=== PATIENT | male | born 1985 | race Caucasian/White ===

== ENCOUNTER 2019-12-15 16:42 | Emergency (ER) | END 2019-12-15 19:30 | disposition left against medical advice (07) | LOC: ER 16:42 | DX: Z53.21 Procedure and treatment not carried out due to patient leaving prior to being seen by health care provider (principal) ==

== ENCOUNTER 2020-04-02 16:39 | Emergency (ER) | payer OTHER ==
--- NOTE | 2020-04-02 17:01 | ER Document Report ---
ED Medical Screen (RME) - General Chief Complaint: Inhalation Injury Stated Complaint: ACCIDENT Time Seen by Provider: 04/02/20 16:45 Notes: Patient is a 34-year-old male who presents to the emergency department with the chief complaint of chest pains that started about a week ago. 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 Patient states that he also has slight abdominal pain. States it started when he started working about a week ago. Denies any fever, body aches, or chills. Patient is an everyday smoker. Patient denies any exhaust exposure. Exam: Clear lung sounds throughout all lung preciado. I have greeted and performed a rapid initial assessment of this patient. A comprehensive ED assessment and evaluation of the patient, analysis of test results and completion of medical decision making process will be conducted by an additional ED providers. Physical Exam - Vital signs Vitals: Temp Pulse Resp BP Pulse Ox 97.9 F 99 16 146/98 H 97 04/02/20 16:44 04/02/20 16:44 04/02/20 16:44 04/02/20 16:44 04/02/20 16:44 Course - Vital Signs Vital signs: Temp Pulse Resp BP Pulse Ox 97.9 F 99 16 146/98 H 97 04/02/20 16:44 04/02/20 16:44 04/02/20 16:44 04/02/20 16:44 04/02/20 16:44
[2020-04-02 17:33] LABS: ABSOLUTE BASOPHILS # (AUTO) 0.1 10^3/uL (0.0-0.2); ABSOLUTE EOSINOPHILS # (AUTO) 0.2 10^3/uL (0.0-0.6); ABSOLUTE LYMPHOCYTES (AUTO) 2.6 10^3/uL (0.5-4.7); ABSOLUTE MONOCYTES (AUTO) 0.5 10^3/uL (0.1-1.4); ABSOLUTE NEUT (AUTO) 3.7 10^3/uL (1.7-8.2); BASOPHILS % (AUTO) 0.8 % (0-2); EOSINOPHILS % (AUTO) 2.5 % (0-6); HEMATOCRIT 46.5 % (37.9-51.0); HEMOGLOBIN 16.7 g/dL (13.5-17.0); LYMPHOCYTES % (AUTO) 36.8 % (13-45); MEAN CORPUSCULAR HEMOGLOBIN 31.7 pg (27.0-33.4); MEAN CORPUSCULAR HGB CONC 35.8 g/dL (32.0-36.0); MEAN CORPUSCULAR VOLUME 88 fl (80-97); MONOCYTES % (AUTO) 7.1 % (3-13); PLATELET COUNT 265 10^3/uL (150-450); RED BLOOD COUNT 5.26 10^6/uL (4.35-5.55); RED CELL DISTRIBUTION WIDTH 13.1 % (11.5-14.0); SEGMENTED NEUTROPHILS % (AUTO) 52.8 % (42-78); TOTAL CELLS COUNTED % (AUTO) 100 %
[2020-04-02 17:55] LABS: ALBUMIN 4.4 g/dL (3.5-5.0); ALKALINE PHOSPHATASE 79 U/L (38-126); ANION GAP 9 (5-19); ASPARTATE AMINO TRANSFERASE 28 U/L (17-59); BILIRUBIN,DIRECT 0.3 mg/dL (0.0-0.4); BILIRUBIN,TOTAL 0.9 mg/dL (0.2-1.3); BLOOD UREA NITROGEN 9 mg/dL (7-20); CALCIUM 9.5 mg/dL (8.4-10.2); CARBON DIOXIDE 25 mmol/L (22-30); CHLORIDE 104 mmol/L (98-107); CREATINE KINASE 72 U/L (55-170); GLUCOSE 116 mg/dL (75-110); POTASSIUM 3.9 mmol/L (3.6-5.0); TOTAL PROTEIN 7.3 g/dL (6.3-8.2)
--- NOTE | 2020-04-02 17:56 | RADIOLOGY REPORT (SQ) ---
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 COMPARISON: None. EXAM PARAMETERS: NUMBER OF VIEWS: two views TECHNIQUE: Digital Frontal and Lateral radiographic views of the chest acquired. RADIATION DOSE: NA LIMITATIONS: none FINDINGS: LUNGS AND PLEURA: No opacities, masses or pneumothorax. No pleural effusion. MEDIASTINUM AND HILAR STRUCTURES: No masses or contour abnormalities. HEART AND VASCULAR STRUCTURES: Heart normal size. No evidence for failure. BONES: No acute findings. HARDWARE: None in the chest. OTHER: No other significant finding. IMPRESSION: NO ACUTE RADIOGRAPHIC FINDING IN THE CHEST. TECHNICAL DOCUMENTATION: JOB ID: [id number] [employer]- All Rights Reserved Reading location - IP/workstation name: [email or web address]
--- NOTE | 2020-04-02 18:05 | EKG REPORT ---
SEVERITY:- BORDERLINE ECG - SINUS RHYTHM BORDERLINE T ABNORMALITIES, INFERIOR LEADS : Confirmed by: Mayco Hdz 02-Apr-2020 18:05:21
--- NOTE | 2020-04-02 21:13 | ER Document Report ---
ED General - General Chief Complaint: Inhalation Injury Stated Complaint: ACCIDENT Time Seen by Provider: 04/02/20 16:45 Notes: Patient is a 34-year-old male comes emergency department for chief complaint of symptoms that started 1 week ago including congestion, sore throat, cough, wheezing. He denies specific chest pain, he states he feels like it is "burning in my chest after coughing spell". Patient also states that he has had abdominal pain for months, he states that every time he lies down he will predictably started having abdominal pain after while and then he feels bad in the morning with reduced appetite. He denies vomiting, current abdominal pain, flank pain. He denies any obvious COVID-19 exposures. 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 He smokes, denies asthma, denies any diagnosed medical history, denies recreational drugs, he states he used to drink a lot of alcohol but has stopped for over a year. - Related Data Allergies/Adverse Reactions: No Known Allergies Allergy (Unverified 04/02/20 22:26) Past Medical History - General Information source: Patient - Social History Smoking Status: Current Every Day Smoker Smoking Education Provided: Yes - <3 min Frequency of alcohol use: None Drug Abuse: None Lives with: Family Family History: Reviewed & Not Pertinent - Medical History Medical History: Negative Surgical Hx: Negative - Immunizations Immunizations up to date: Yes Hx Diphtheria, Pertussis, Tetanus Vaccination: Yes Review of Systems - Review of Systems Constitutional: See HPI EENT: See HPI Cardiovascular: No symptoms reported Respiratory: See HPI Gastrointestinal: See HPI Genitourinary: No symptoms reported Male Genitourinary: No symptoms reported Musculoskeletal: No symptoms reported Skin: No symptoms reported Hematologic/Lymphatic: No symptoms reported Neurological/Psychological: No symptoms reported Physical Exam - Vital signs Vitals: Temp Pulse Resp BP Pulse Ox 97.9 F 99 16 146/98 H 97 04/02/20 16:44 04/02/20 16:44 04/02/20 16:44 04/02/20 16:44 04/02/20 16:44 - Notes Notes: GENERAL: Alert, interacts well. No acute distress. HEAD: Normocephalic, atraumatic. EYES: Pupils equal, round, and reactive to light. Extraocular movements intact. ENT: Oral mucosa moist, tongue midline. Oropharynx unremarkable. Airway patent. Mild sinus congestion, sinuses non-tender, ear canals unremarkable, TM's intact. NECK: Full range of motion. Supple. Trachea midline. No lymphadenopathy. LUNGS: Clear to auscultation bilaterally, no wheezes, rales, or rhonchi. No respiratory distress. Non-tender chest wall. HEART: Regular rate and rhythm. No murmur ABDOMEN: Soft, non-tender. Non-distended. EXTREMITIES: Moves all 4 extremities spontaneously. No edema, normal radial and dorsalis pedis pulses bilaterally. No cyanosis. BACK: no cervical, thoracic, lumbar midline tenderness. No saddle anesthesia, normal distal neurovascular exam. Moves all extremities in full range of motion. NEUROLOGICAL: Alert and oriented x3. Normal speech. Cranial nerves II through XII grossly intact. Strength 5/5 in all extremities. PSYCH: Normal affect, normal mood. SKIN: Warm, dry, normal turgor. No rashes or lesions noted. Course - Re-evaluation Re-evalutation: Patient with 2 separate complaints, first complaint is sore throat that resolved, congestion, cough, he states he felt he was wheezing earlier but his lungs are clear on auscultation. He denies fever. Chest x-ray unremarkable. E KG shows inverted T wave in lead III, troponin negative, symptoms been present for multiple days. Patient has not actually had any chest pain. Vital signs unremarkable. Patient is also complaining of abdominal symptoms especially after lying down in first thing in the morning which are very suggestive of gastritis/GERD, he has no current abdominal complaints. Labs reviewed and unremarkable. I discussed findings with patient. Patient is requesting we have tested for COVID-19 and this was performed. Discussed details of this as well. Discussed treatment options, given Decadron for bronchitis/potential COVID-19, discussed remaining medications include treatment for gastritis, discussed follow-up and return precautions. Patient states appreciation and agreement. Stable and well-appearing at time of discharge. - Vital Signs Vital signs: Temp Pulse Resp BP Pulse Ox 97.8 F 80 14 140/80 H 98 04/02/20 22:35 04/02/20 22:35 04/02/20 22:35 04/02/20 22:35 04/02/20 22:35 - Laboratory Result Diagrams: 04/02/20 17:20 04/02/20 17:20 Laboratory results interpreted by me: 04/02/20 17:20 Glucose 116 H - EKG Interpretation by Me Additional EKG results interpreted by me: EKG shows sinus rhythm at a rate of 84, QTc 440, normal axis, inverted T waves in lead III but no T wave inversions or ST segment changes in consecutive leads. Discharge - Discharge Clinical Impression: Sinus congestion, Shortness of breath, Cough, Person under investigation for COVID-19 Condition: Stable Disposition: HOME, SELF-CARE Additional Instructions: Your chest x-ray and work-up today did not show any concerning findings. Your symptoms and examination are most consistent with upper respiratory inflammation and bronchitis. You have been treated with Decadron, use the albuterol inhaler and spacer, use the nasal spray. In regards to your gastrointestinal symptoms based on your evaluation and symptoms I suspect that you have gastritis. Take Carafate and Pepcid as pre scribed to help treat this, you can take additional Rolaids, Tums, Maalox, etc. if needed. You can take Tylenol for pain. Avoid NSAIDs, alcohol, smoking, caffeine, spicy food. Start with a bland diet. You have been tested for COVID-19, you will be contacted with results, please quarantine while you are waiting for this, see additional instructions below. Follow-up with primary care for additional evaluation and treatment. Return if you worsen including difficulty breathing, fever, severe chest pain, uncontrolled vomiting, vomiting blood, black stools, or any other concerning or worsening symptoms. As a person under investigation for COVID-19, the [place] Department of Health and Human Services (division on public health) advises you to adhere to the following guidance until your test results are reported to you. If your test result is positive, you will receive additional information from your provider and your local health department at that time. Remain at home until you are cleared by the health provider or public health authorities. Keep a log of visitors to your home, notify any visitors to your home of your isolation status. If you plan to move to a new address or leave the [facility], notify the local health department in your County. Call your Doctor or seek care if you have an urgent medical need. Before seeking medical care, call him to get instructions from the provider before arriving at the medical office, clinic, or hospital. Notify them that you are being tested for the virus (COVID-19) so that arrangements can be made, as necessary, to prevent transmission to others in the healthcare setting. Next, notify the local health department in your county. If a medical emergency arises and you need to call 911, inform the first responders that you are being tested for the virus that causes COVID-19. Next, notify the local health department in your county. Prescriptions: Sucralfate [Carafate 1 gm Tablet] 1 gm PO QID #20 tablet Fluticasone Propionate [Flonase Nasal [place] 50 Mcg/[place] 16 gm] 2 sprays NASL Q12 #1 inhaler Famotidine [Pepcid 20 mg Tablet] 20 mg PO BID #20 tablet Forms: Return to Work
[2020-04-02] MEDS ORDERED: DEXAMETHASONE SOD PHOS INJ 10 MG/1 ML VIAL IM ONE (22:18)
[2020-04-02 22:37] VITALS: BP 140/80
== END 2020-04-02 22:37 | disposition home or self-care (01) ==
LOC: ER 16:39
DX: R09.81 Nasal congestion (principal); R06.02 Shortness of breath; R05 Cough; J02.9 Acute pharyngitis, unspecified; R10.9 Unspecified abdominal pain; R63.0 Anorexia; F17.200 Nicotine dependence, unspecified, uncomplicated; Z20.828 Contact with and (suspected) exposure to other viral communicable diseases
CPT/HCPCS: 93005; 99285; 96372; 36415; 82550; 83735; 85025; 87635; 80053; 84484; 71046; 93010; J1100; C9803